=== PATIENT | male | born 1970 | race Caucasian/White ===

== ENCOUNTER 2017-06-01 12:03 | Inpatient (IN) | payer OTHER ==
[~2017-06-01] VITALS: Ht 172.7 cm; Wt 92.0 kg
[2017-06-01] MEDS ORDERED: LORAZEPAM 1 MG TAB PO PRN (15:45)
[2017-06-01] MEDS ORDERED: PROMETHAZINE HCL INJ 12.5 MG in SODIUM CHLORIDE 0.9% 50ML 50 ML IV PRN (15:45)
[2017-06-01] MEDS ORDERED: HYDROCODONE/ACETAMIN 5/325MG TAB PO PRN (15:45)
[2017-06-01] MEDS ORDERED: ONDANSETRON INJ 2 MG/ML 2 ML VIAL IV PRN (15:45)
[2017-06-01] MEDS ORDERED: KETOROLAC TROMETHAMINE 15 MG/ML VIAL IV PRN (15:45)
[2017-06-01] MEDS ORDERED: ACETAMINOPHEN 325 MG TAB PO PRN (15:45)
[2017-06-01] MEDS ORDERED: PATIENT'S ALLERGY INFO NEEDS ENTERED SCH (17:45)
[2017-06-01 19:40] VITALS: BP 164/92; PULSE 79; TEMP 36.7; O2SAT 98
[2017-06-01] MEDS: LACTATED RINGER'S 1000ML 1,000 ML IV SCH (19:59)
[2017-06-01] MEDS: OXYCODONE/ACETAMINOPHEN 5-325 TAB PO PRN (19:59)
[2017-06-01 20:02] LABS: BASO % 0.1 %; BASO ABS # 0.01 K/uL (0-0.2); EOS % 0.2 %; EOS ABS # 0.02 K/uL (0-0.5); IG# 0.02 K/uL (0.00-0.02); LYMPH % 11.1 %; LYMPH ABS # 1.38 K/uL (1.2-3.4); MEAN CELL VOLUME 89.8 fL (80-100); MEAN CORPUSCULAR HEMOGLOBIN 30.6 pg (25-34); MEAN CORPUSCULAR HGB CONC 34.1 g/dl (32-36); MEAN PLATELET VOLUME 10.4 fL (7.4-10.4); MONO % 8.1 %; NEUT % 80.3 %; NEUT ABS # 9.98 K/uL (1.4-6.5); PLATELET COUNT 309 K/uL (130-400); RED CELL DISTRIBUTION WIDTH CV 13.1 % (11.5-14.5); RED CELL DISTRIBUTION WIDTH SD 43.1 fL (36.4-46.3); WHITE BLOOD COUNT 12.41 K/uL (4.8-10.8)
[2017-06-01 20:19] VITALS: BP 164/92; PULSE 79; TEMP 36.7; O2SAT 98; Ht 172.7 cm; Wt 92.0 kg
[2017-06-01] MEDS: DEXAMETHASONE INJ 8 MG in SYRINGE 0 ML IV SCH (21:03)
[2017-06-01] MEDS ORDERED: MoRPHine SULFATE 4 MG/ML 1 ML CARP\\VIAL IV PRN (21:45)
[2017-06-01] MEDS ORDERED: MoRPHine SULFATE 10 MG/ML CARP/VIAL IV PRN (21:45)
[2017-06-01] MEDS ORDERED: NURSING VERBAL MED ORDER ONE (21:45)
[2017-06-01 23:02] VITALS: BP 149/76; PULSE 79; TEMP 36.5; O2SAT 98
[2017-06-02] MEDS: DEXAMETHASONE INJ 8 MG in SYRINGE 0 ML IV SCH ×2 (05:28→13:31)
[2017-06-02] MEDS ORDERED: NURSING DECISION MEDICATION ORDER SCH (06:30)
[2017-06-02 08:08] VITALS: BP 142/80; PULSE 80; TEMP 36.4; O2SAT 93
--- NOTE | 2017-06-02 08:18 | HISTORY & PHYSICAL EXAMINATION ---
DATE OF ADMISSION: 06/01/2017 SUBJECTIVE: His pain is controlled at rest but with any movement, he does have significant pain to the back and to the lower extremities. He has no fevers, sweats, chills. No bowel or bladder issues. Examination demonstrates pain with straight leg raising, moderate on the right, negative on the left. Adequate dorsiflexion, plantarflexion tested in the supine position. We did not get him up standing. Sensation normal. Images from an outside facility reported to have a disc protrusion lumbar spine L5-S1. ASSESSMENT: Delightful gentleman at 46 with a disc protrusion lumbar spine. We will try to treat him medically with some steroids, Toradol and some Neurontin and hopefully get this quieted down. There is a chance of course of surgical intervention. If surgery is needed this will be done several days in the future, it will not be performed over the weekend.
[2017-06-02 08:58] VITALS: O2SAT 93
[2017-06-02] MEDS: LACTATED RINGER'S 1000ML 1,000 ML IV SCH ×2 (08:58→20:48)
[2017-06-02] MEDS: GABAPENTIN 300 MG CAP PO SCH ×3 (09:30→20:46)
--- NOTE | 2017-06-02 10:18 | Pain Management Consultation ---
Pain Management Consultation Date of Consultation Jun 02, 2017. Reason for Consultation Low back pain with radicular symptoms right lower extremity Pain Location 1 - Right-sided axial low back pain 2 - Right leg radicular pain. History Valerio Morocho is a 46-year-old male who is admitted to [facility] with complaints of experiencing axial low back pain with right lower extremity radicular pain. Pain is located in the right distal lumbar spine and radiates to posterior lateral aspect of his right lower extremity all the way into the ball of his right foot. Symptoms started in late February and gradually worsened since then to the current intensity. 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 Symptoms are characterized as sharp pain in the low back with burning and "shooting" sensation in the right lower extremity. Activities that exacerbate patient's symptoms include activities required daily living such as ambulating from the bed to the bathroom. Activities that alleviate patient's symptoms include lying supine, immobile position. Symptoms are rated as 10/10 on visual analog scale when severe and 3/10 when minimal. Current treatments include hydrocodone, oxycodone, IV morphine, IV dexamethasone , gabapentin. Previous treatments include OTC NSAID as an outpatient with minimal efficacy. Previous evaluations include consultation with a general orthopedist and an MRI of the lumbar spine. Neither the images were no other report is available at the present time in the EMR to review. He is reference in Dr. Roca's note that patient has an L5/S1 disc herniation. Reports some neurological symptoms associated with the symptoms consisting of sensation of "heaviness" of the right lower extremity and paresthesia in the L5 distribution on the right side. He denies any bowel bladder incontinence, saddle anesthesia, numbness, weakness or any other neurological symptoms. Past Medical: Denies any past medical history. Past Surgical: Denies any past surgical history. Family History Noncontributory. Social / Work History Smoking Status: Never smoker Smokeless Tobacco Use: No Alcohol Use: socially Marital Status: Housing Status: lives with family Occupation: employed Allergies Coded Allergies: No Known Allergies (Unverified , 06/01/17) Medications Current Inpatient Medications Medications (Trade) Dose Ordered Sig/Mimi Route Start Time Stop Time Status Last Admin Dose Admin Lactated Ringer's 1,000 ml @ 75 mls/hr [id number] IV 06/01/17 15:38 07/01/17 15:37 06/02/17 08:58 75 MLS/HR Acetaminophen (Tylenol Tab) 650 mg Q6H PRN PO 06/01/17 15:45 07/01/17 15:44 Dexamethasone Sodium Phosphate 8 mg/Syringe 2 ml @ 1 mls/min Q8H IV 06/01/17 22:00 06/02/17 14:01 06/02/17 05:28 1 MLS/MIN Promethazine HCl 12.5 mg/Sodium Chloride 50.5 ml @ 202 mls/hr Q6H PRN IV 06/01/17 15:45 07/01/17 15:44 Ondansetron HCl (Zofran Inj) 4 mg Q6H PRN IV 06/01/17 15:45 07/01/17 15:44 Lorazepam (Ativan Tab) 1 mg Q6H PRN PO 06/01/17 15:45 07/01/17 15:44 Oxycodone/ Acetaminophen (Percocet 5-325mg Tab) Moderate to Severe niharika... Q4H PRN PO 06/01/17 15:45 06/15/17 15:44 06/01/17 19:59 2 TAB Acetaminophen/ Hydrocodone Bitart (Helen 5/325 Tab) Moderate to Severe Niharika... Q4H PRN PO 06/01/17 15:45 06/15/17 15:44 Ketorolac Tromethamine (Toradol Inj) 15 mg Q6H PRN IV 06/01/17 15:45 06/06/17 15:44 06/01/17 20:12 15 MG Morphine Sulfate (MoRPHine SULFATE INJ) 4 mg Q2H PRN IV 06/01/17 21:45 06/15/17 21:44 06/02/17 07:19 4 MG Morphine Sulfate (MoRPHine SULFATE INJ) 6 mg Q2H PRN IV 06/01/17 21:45 06/15/17 21:44 Gabapentin (Neurontin Cap) 300 mg TID PO 06/02/17 09:00 07/02/17 08:59 06/02/17 09:30 300 MG Review of Systems Denies any recent history of fever, night sweats, unexplained weight loss, or constitutional symptoms. Otherwise, 8 point review of system has been reported to be negative. Physical Exam Height & Weight: Height 5 feet, 8.00 inches. Weight 92.000 (Kilograms) 202 (Pounds) Last Vital Signs Documentation Date Time Temp Pulse Resp B/P (MAP) Pulse Ox O2 Delivery O2 Flow Rate FiO2 06/02/17 08:58 93 Room Air 06/02/17 08:08 36.4 80 14 142/80 (100) Exam: GENERAL: Mr. Morocho is awake, alert and oriented. Appears well developed. He is in moderate distress at the present time when he attempts to move his bed. Appears deconditioned. BMI is 30.8 kg/m2. PSYCHIATRIC: Mood appears to be appropriate. Demonstrates normal affect. Short-term and long-term memory is intact. Judgment is intact. VASCULAR: Peripheral pulses are symmetrical. No distal edema noted. MUSCULOSKELETAL: Inspection of the lumbar spine demonstrates normal curvatures. No lesions are noted in the lumbar spine region. Palpation of the spinous processes intraspinal ligaments demonstrates minimal focal pain in the distal lumbar spine. Provocative testing of the facet joints is unremarkable. Provocative testing of the sacroiliac joints bilaterally demonstrates no pain. No myofascial tenderness or trigger points identifiable in the paraspinous musculature. Inspection of major joints of the lower demonstrates no gross abnormalities. Active and passive range of motion of lower extremity is unremarkable SKIN: Appears unremarkable NEUROLOGICAL: Sensory exam demonstrates intact sensation without deficits. Motor exam demonstrates symmetrical strength without deficit. No pathologic reflexes are noted in the lower extremity. Gait was not tested. Straight leg raising is positive on the right side at 25 increased radicular pain is noted with Achilles stretch. No pathologic reflexes are noted. Reflexes: Patellar Reflex L +2 R +2 Achilles Reflex L +2 R +2 Laboratory Laboratory Results (Last CBC): 06/01/17 19:47 Red Blood Count 4.90, Mean Corpuscular Volume 89.8, Mean Corpuscular Hemoglobin 30.6, Mean Corpuscular Hemoglobin Concent 34.1, Mean Platelet Volume 10.4, Neutrophils (%) (Auto) 80.3, Lymphocytes (%) (Auto) 11.1, Monocytes (%) (Auto) 8.1, Eosinophils (%) (Auto) 0.2, Basophils (%) (Auto) 0.1, Neutrophils # (Auto) 9.98 H, Lymphocytes # (Auto) 1.38, Monocytes # (Auto) 1.00 H, Eosinophils # ( Auto) 0.02, Basophils # (Auto) 0.01 [place] Drug Monitoring Program Search Results: patient reviewed within database, no issues identified Opioid Risk Assessment Risk assessment performed, no issues identified Assessment 1. Intervertebral disc disorder with a right L5 radiculitis. Recommendations 1. Agree with steroids, gabapentin and analgesic regimen until images can be reviewed and determination can be made as to whether patient is a candidate for L5/S1 transforaminal epidural steroid injection. 2. Recommend adjusting the opioid regimen to include one oral analgesic and 1 oral analgesic into the currently ordered multiple once. 3. Recommend discontinuance of IV Toradol as patient already receiving IV steroids for anti-inflammatory effect. 4. If patient improved over the weekend, he can be discharged and can undergo number transforaminal injection as an outpatient either at [facility] or locally in [place], [place].
--- NOTE | 2017-06-02 12:31 | Discharge Instructions ---
Discharge Instructions Date of Service Jun 02, 2017. Admission Reason for Admission: Disc Herniation Discharge Discharge Diagnosis / Problem: same Discharge Goals Goal(s): Improve function Activity Recommendations Activity Limitations: as noted below Lifting Limitations: no more than 5 pounds, until after follow-up appointment Exercise/Sports Limitations: until after follow-up appointment May Resume Sexual Activity: after follow-up appointment home, rest, recover . Current Hospital Diet Patient's current hospital diet: Regular Diet Discharge Diet Recommended Diet: Regular Diet Pending Studies Studies pending at discharge: no Medical Emergencies . Who to Call and When: Medical Emergencies: If at any time you feel your situation is an emergency, please call 911 immediately. . Non-Emergent Contact Non-Emergency issues call your: Primary Care Provider . "Provider Documentation" section prepared by Rafael Roca. . VTE Core Measure Inpt VTE Proph given/why not?: Treatment not indicated
[2017-06-02] MEDS ORDERED: OXYC-57 PO (12:32)
[2017-06-02] MEDS ORDERED: METH1TAB81 PO (12:34)
[2017-06-02 15:36] VITALS: BP 154/79; PULSE 93; TEMP 36.4; O2SAT 93
[2017-06-02 16:15] VITALS: O2SAT 93
[2017-06-02] MEDS ORDERED: NRN/300 PO ×2 (18:47→18:50)
--- NOTE | 2017-06-02 19:08 | PROGRESS NOTE ---
DATE: 06/02/2017 Valerio is doing quite well on today's date. He has been up and to the bathroom. He is taking p.o. His pain is controlled with a combination of Neurontin, steroids and the narcotic has helped him a great deal. He is improved, stable, with no neurological deficit. PLAN: We will plan on discharging him home tomorrow. Prescriptions on his chart. We will see him back as an outpatient for followup. He more than likely will be seeing Dr. Escobar as well.
[2017-06-02 23:07] VITALS: BP 134/80; PULSE 66; TEMP 36.5; O2SAT 95
[2017-06-03] MEDS: OXYCODONE/ACETAMINOPHEN 5-325 TAB PO PRN ×2 (04:12→09:02)
[2017-06-03 07:15] VITALS: BP 144/83; PULSE 74; TEMP 36.3; O2SAT 96
[2017-06-03] MEDS: GABAPENTIN 300 MG CAP PO SCH (08:57)
[2017-06-03 10:11] VITALS: BP 144/83; PULSE 74; TEMP 36.3; O2SAT 96
--- NOTE | 2017-06-03 10:16 | PROGRESS NOTE ---
DATE: 06/03/2017 CHIEF COMPLAINT: L5 disc herniation. PROGRESS: Overall Valerio is doing better. He has been up and ambulating and his pain is controlled with a combination of Neurontin, steroids and narcotics. He has no neurologic deficits. PHYSICAL EXAMINATION: He has adequate dorsiflexion and plantarflexion of his ankles in the supine position. He is sitting up about 45 degrees without much pain. IMPRESSION: Mild to moderate L5 disc herniation. PLAN: His pain seems better controlled. We have been treating him with Toradol, Neurontin, steroids and some narcotic pain medications. He is much better than when he came into the office. He was hoping that somebody would take a look at his MRI from [place] however, it is difficult upload it, however, it is something that we want to go over with him in the office. We see no surgical indications at this time based on how he is presenting. I did speak with Dr. Roca personally over the phone. We will discharge him to home today on Neurontin, Medrol and Percocet. He can follow up with Dr. Roca in the office this week at which time he is to bring his MRI disc and we will go over closely with him in the office.
== END 2017-06-03 12:08 | disposition home or self-care (01) | DRG 552 ==
LOC: C.MSN 19:39
PROVIDERS: ADMIT Orthopaedic Surgery Orthopaedic Surgery of the Spine; ATTEND Orthopaedic Surgery Orthopaedic Surgery of the Spine
DX: M51.17 Intervertebral disc disorders with radiculopathy, lumbosacral region (principal)

== ENCOUNTER → 2017-07-11 | Day surgery (SDC) | payer OTHER ==
[2017-07-10 08:33] VITALS: Ht 172.7 cm; Wt 93.6 kg
[~2017-07-11] VITALS: Ht 172.7 cm; Wt 93.6 kg
[~2017-07-11] MED LIST: DEXAMETHASONE SOD INJ 4 MG/ML VIAL ONE; GABA-113 PO; LIDOCAINE HCL 1% MPF 5 ML VIAL ONE; NORCO PO; SODIUM CHLORIDE 0.9% 1000ML 1,000 ML IV SCH
--- NOTE | 2017-07-11 07:33 | History & Physical Bridge - [place] ---
H&P Re-Evaluation Bridge Note: I have examined the patient, reviewed the History & Physical and in the interval since the performance of the History & Physical I have noted the following changes of clinical significance: No changes noted
--- NOTE | 2017-07-11 08:17 | Discharge Instructions ---
Discharge Instructions Date of Service Jul 11, 2017. Admission Reason for Admission: Intervertebral Disc Disorder With Myelopathy Discharge Discharge Diagnosis / Problem: same Discharge Goals Goal(s): Improve function Activity Recommendations Activity Limitations: as noted below Lifting Limitations: gradually increase as tolerated . Current Hospital Diet Patient's current hospital diet: Discharge Diet Recommended Diet: Regular Diet Procedures Procedures Performed: L5-S1 EPIDURAL STEROID INJECTION Pending Studies Studies pending at discharge: no Medical Emergencies . Who to Call and When: Medical Emergencies: If at any time you feel your situation is an emergency, please call 911 immediately. . Non-Emergent Contact Non-Emergency issues call your: Primary Care Provider . "Provider Documentation" section prepared by Rafael Roca. .
[2017-07-11 08:20] VITALS: TEMP 36.6
--- NOTE | 2017-07-11 08:20 | [facility] Post Operative Brief Note ---
Immediate Operative Summary Operative Date Jul 11, 2017. Pre-Operative Diagnosis LUMBAR DISC HERNIATION L5-S1 Post-Operative Diagnosis LUMBAR DISC HERNIATION L5-S1 Procedure(s) Performed L5-S1 EPIDURAL STEROID INJECTION Surgeon DR. KRANTHI HERNANDEZ Employment Officer Surgeon(s) 0 Estimated Blood Loss NONE Findings Consistent with Post-Op Diagnosis Specimens none Drains None Anesthesia Type Local Complication(s) none
[2017-07-11 08:44] VITALS: BP 144/89; PULSE 77; O2SAT 96
--- NOTE | 2017-07-12 07:55 | OPERATIVE REPORT ---
DATE OF OPERATION: 07/12/2017 PREOPERATIVE DIAGNOSIS: Disc herniation, lumbar spine. POSTOPERATIVE DIAGNOSIS: Same. PROCEDURE: Include epidural steroid injection, L5-S1 lumbar spine. DESCRIPTION OF PROCEDURE: The patient was taken to the operating room and general plus a local anesthetic provided to the patient. He was placed prone. I numbed up the skin interspace above the L5-S1 area. The spinal needle 18 gauge Tuohy advanced to the epidural space. I used an air acceptance technique. I favored the right hand side, the symptomatic side. 2 mL of dexamethasone injected without incident. The patient tolerated it well and returned home, improved, stable. No blood loss. No complications. I attest to the content of the Intraoperative Record and any orders documented therein. Any exception s are noted below.
== END | disposition home or self-care (01) ==
LOC: X.SURG 07:09
PROVIDERS: ATTEND Orthopaedic Surgery Orthopaedic Surgery of the Spine
DX: M51.26 Other intervertebral disc displacement, lumbar region (principal)